=== PATIENT | male | born 1980 | race African-American/Black ===

== ENCOUNTER 2019-06-05 04:25 | Emergency (ER) | payer MEDICAID ==
[~2019-06-05] VITALS: Ht 182.9 cm; Wt 72.0 kg
[2019-06-05] MEDS ORDERED: ALBUTEROL/IPRATROPIUM 2.5MG/0.5MG, 3 ML ONE (04:36)
[2019-06-05] MEDS ORDERED: THIAMINE 200 MG in SODIUM CHLORIDE 0.9% 50 ML IV ONE (05:00)
[2019-06-05] MEDS ORDERED: SODIUM CHLORIDE 0.9% 1,000ML IVBOLUS ONE (05:00)
[2019-06-05] MEDS ORDERED: ONDANSETRON 2MG/ML, 2ML IVPush ONE (05:00)
[2019-06-05] MEDS ORDERED: FOLIC ACID 1 MG in DEXTROSE 5% 50 ML IV SCH (05:00)
[2019-06-05] MEDS ORDERED: SODIUM CHLORIDE FLUSH 10ML SYR IVF ONE (05:00)
[2019-06-05] MEDS ORDERED: FAMOTIDINE 20 MG/2 ML IVP ONE (05:00)
[2019-06-05 05:17] VITALS: BP 121/70
--- NOTE | 2019-06-05 05:17 | NUR ---
Patient/Caregiver given discharge instructions and they have confirmed that they understand the instructions. Patient ambulatory with steady gait.
== END 2019-06-05 05:19 ==
LOC: ED 05:13
DX: J45.41 Moderate persistent asthma with (acute) exacerbation (principal)
CPT/HCPCS: 94640; 99283

== ENCOUNTER 2020-04-29 13:50 | Inpatient (IN) | payer MEDICAID ==
[~2020-04-29] VITALS: Ht 182.9 cm; Wt 76.6 kg
--- NOTE | 2020-04-29 14:17 | NUR ---
PT WAS AT WORK WHEN HE HAD A SUDDEN ONSET OF LIGHTHEADEDNESS AND DIZZINESS WITH A SYNCOPAL EPISODE WHERE HE HIT HIS HEAD AND TWISTED HIS L ANKLE. PT CURRENTLY [employer] 15. DENIES EDWARDS, N/V. PT ADMITS TO "WORKING A LOT AND FEELING EXHAUSTED AND DEHYDRATED". 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 VS STABLE. WILL CONTINUE TO MONITOR PT.
[2020-04-29] MEDS ORDERED: SODIUM CHLORIDE 0.9% 1,000ML IVBOLUS ONE (14:30)
[2020-04-29 14:48] LABS: ALBUMIN 3.4 g/dL (3.4-5.0); ANION GAP 7 mmol/L (5-15); CALCIUM 8.4 mg/dL (8.5-10.1); CHLORIDE 110 mmol/L (98-107); CREATININE 1.56 mg/dL (0.7-1.3)
[2020-04-29 14:51] LABS: TROPONIN I < 0.015 ng/mL (0.000-0.045)
[2020-04-29 15:10] LABS: MEAN CORPUSCULAR HEMOGLOBIN 24.4 pg (27.5-34.5); MEAN CORPUSCULAR HGB CONC 31.5 g/dL (33.2-36.2); MEAN CORPUSCULAR VOLUME 77.6 fL (81-97); MEAN PLATELET VOLUME 7.1 fL (7.4-10.4); PLATELET COUNT 281 x10^3/uL (130-400); RED BLOOD COUNT 5.83 x10^6/uL (4.38-5.82); RED CELL DISTRIBUTION WIDTH 15.7 % (9.4-14.8)
[2020-04-29 15:29] LABS: BASOPHILS # (AUTO) 0.03 x10^3/uL (0-0.1); BASOPHILS % (AUTO) 1 % (0-1); EOSINOPHILS # (AUTO) 0.26 x10^3/uL (0-0.4); EOSINOPHILS % (AUTO) 9 % (1-7); LYMPHOCYTES # (AUTO) 0.83 x10^3/uL (1-3.4); LYMPHOCYTES % (AUTO) 30 % (22-44); MD SCAN; MONOCYTES # (AUTO) 0.22 x10^3/uL (0.2-0.8); MONOCYTES % (AUTO) 8 % (2-9); NEUTROPHILS # (AUTO) 1.46 x10^3/uL (1.8-6.8); NEUTROPHILS % (AUTO) 52 % (42-75)
[2020-04-29] MEDS ORDERED: ONDANSETRON ODT 4 MG PO PRN (18:00)
[2020-04-29] MEDS ORDERED: ACETAMINOPHEN 325 MG TABLET PO PRN (18:00)
[2020-04-29] MEDS ORDERED: SODIUM CHLORIDE FLUSH 10ML SYR IVF PRN (18:00)
[2020-04-29 18:02] LABS: MEAN CORPUSCULAR HEMOGLOBIN 23.8 pg (27.5-34.5); MEAN CORPUSCULAR HGB CONC 30.7 g/dL (33.2-36.2); MEAN CORPUSCULAR VOLUME 77.7 fL (81-97); MEAN PLATELET VOLUME 7.1 fL (7.4-10.4); PLATELET COUNT 321 x10^3/uL (130-400); RED BLOOD COUNT 5.57 x10^6/uL (4.38-5.82); RED CELL DISTRIBUTION WIDTH 15.7 % (9.4-14.8)
[2020-04-29 18:13] VITALS: BP 124/74
[2020-04-29] MEDS: NICOTINE 14MG/24 HR PATCH.TD24 TD SCH (18:18)
[2020-04-29] MEDS: SODIUM CHLORIDE 0.9% 1,000 ML IV SCH (18:19)
[2020-04-29 18:22] LABS: BASOPHILS % (AUTO) 0 % (0-1); EOSINOPHILS # (AUTO) 0.21 x10^3/uL (0-0.4); EOSINOPHILS % (AUTO) 4 % (1-7); LYMPHOCYTES # (AUTO) 0.88 x10^3/uL (1-3.4); LYMPHOCYTES % (AUTO) 16 % (22-44); MD SCAN; MONOCYTES # (AUTO) 0.16 x10^3/uL (0.2-0.8); MONOCYTES % (AUTO) 3 % (2-9); NEUTROPHILS # (AUTO) 4.13 x10^3/uL (1.8-6.8); NEUTROPHILS % (AUTO) 77 % (42-75)
[2020-04-29 19:05] VITALS: BP 123/71
[2020-04-29 20:16] VITALS: BP 115/73
[2020-04-29 20:18] VITALS: BP 116/76
[2020-04-29 20:21] VITALS: BP 125/81
[2020-04-29 21:13] LABS: TROPONIN I < 0.015 ng/mL (0.000-0.045)
[2020-04-30] VITALS (10 sets, daily range): BP systolic 109–125; BP diastolic 57–73
[2020-04-30] MEDS: SODIUM CHLORIDE 0.9% 1,000 ML IV SCH ×3 (01:46→19:57)
[2020-04-30 03:26] LABS: ANION GAP 4 mmol/L (5-15); CALCIUM 8.2 mg/dL (8.5-10.1); CHLORIDE 112 mmol/L (98-107)
[2020-04-30 03:30] LABS: ALANINE AMINOTRANSFERASE 22 U/L (12-78); ALKALINE PHOSPHATASE 55 U/L (45-117); BILIRUBIN,TOTAL 1.1 mg/dL (0.2-1.0); CHOLESTEROL, TOTAL 164 mg/dL (140-239); CREATININE 1.33 mg/dL (0.7-1.3); HDL CHOL % 50 % (26-37); HDL CHOLESTEROL (DIRECT) 82 mg/dL (40-60); LDL CHOLESTEROL,CALCULATED 64 mg/dL (54-169); LDL/HDL RATIO 0.8 (0.5-3.0); TOTAL PROTEIN 6.3 g/dL (6.4-8.2); TRIGLYCERIDES 91 mg/dL (50-200); TROPONIN I < 0.015 ng/mL (0.000-0.045); VLDL CHOLESTEROL 18 mg/dL (0-25)
[2020-04-30 12:25] LABS: AMPHETAMINE SCREEN, URINE Positive (Negative); BARBITURATE SCREEN, URINE Negative (Negative); BENZODIAZEPINE SCREEN, URINE Negative (Negative); CANNABINOID SCREEN, URINE Negative (Negative); COCAINE SCREEN, URINE Negative (Negative); METHADONE SCREEN, URINE Negative (Negative); OPIATE SCREEN, URINE Negative (Negative)
[2020-04-30] MEDS: NICOTINE 14MG/24 HR PATCH.TD24 TD SCH (18:00)
[2020-05-01 01:05] VITALS: BP 101/57
[2020-05-01 02:30] VITALS: BP 119/77
[2020-05-01] MEDS: SODIUM CHLORIDE 0.9% 1,000 ML IV SCH ×5 (02:41→17:47)
[2020-05-01 06:48] VITALS: BP 128/71
[2020-05-01] MEDS ORDERED: MIDAZOLAM 1 MG/ML, 5ML ONE ×2 (09:52→13:40)
[2020-05-01] MEDS ORDERED: FENTANYL PF 100 MCG/2ML ONE ×2 (09:52→13:40)
[2020-05-01 09:53] LABS: INTERNATIONAL NORMALIZED RATIO 1.04 (0.93-1.1)
[2020-05-01] MEDS ORDERED: LIDOCAINE 2%, 20ML ONE ×2 (09:53→15:12)
[2020-05-01] MEDS ORDERED: CEFAZOLIN PMX 1GM/50ML 0 ML ONE (09:53)
[2020-05-01] MEDS ORDERED: CEFAZOLIN 1,000 MG ONE ×2 (09:53→13:40)
[2020-05-01 13:00] VITALS: BP 144/88
[2020-05-01] MEDS ORDERED: CEFAZOLIN PMX 1GM/50ML 100 ML ONE (13:40)
[2020-05-01] MEDS ORDERED: LIDOCAINE 1%, 20ML ONE (13:40)
[2020-05-01] MEDS ORDERED: Hold all anticoagulants for 24 hours (including Lovenox and Heparin) MC PRN (16:30)
[2020-05-01] MEDS ORDERED: HYDROcodone/APAP 5/325 TABLET PO PRN (16:30)
[2020-05-01] MEDS: NICOTINE 14MG/24 HR PATCH.TD24 TD SCH (17:47)
[2020-05-01 20:46] VITALS: BP 153/96
[2020-05-01] MEDS: SODIUM CHLORIDE FLUSH 10ML SYR IVF SCH (21:20)
[2020-05-02 01:44] VITALS: BP 128/66
[2020-05-02] MEDS: SODIUM CHLORIDE 0.9% 1,000 ML IV SCH ×2 (04:03→08:31)
[2020-05-02 05:41] LABS: BASOPHILS # (AUTO) 0.02 x10^3/uL (0-0.1); BASOPHILS % (AUTO) 0 % (0-1); EOSINOPHILS % (AUTO) 4 % (1-7); LYMPHOCYTES # (AUTO) 1.92 x10^3/uL (1-3.4); LYMPHOCYTES % (AUTO) 27 % (22-44); MD NO; MEAN CORPUSCULAR VOLUME 77.4 fL (81-97); MEAN PLATELET VOLUME 7.5 fL (7.4-10.4); MONOCYTES # (AUTO) 0.48 x10^3/uL (0.2-0.8); MONOCYTES % (AUTO) 7 % (2-9); NEUTROPHILS # (AUTO) 4.35 x10^3/uL (1.8-6.8); NEUTROPHILS % (AUTO) 62 % (42-75); PLATELET COUNT 287 x10^3/uL (130-400); RED BLOOD COUNT 5.91 x10^6/uL (4.38-5.82); RED CELL DISTRIBUTION WIDTH 15.2 % (9.4-14.8)
[2020-05-02 05:57] LABS: ANION GAP 8 mmol/L (5-15); CALCIUM 8.3 mg/dL (8.5-10.1); CHLORIDE 107 mmol/L (98-107); CREATININE 1.35 mg/dL (0.7-1.3)
[2020-05-02 06:51] VITALS: BP 130/82
[2020-05-02] MEDS: SODIUM CHLORIDE FLUSH 10ML SYR IVF SCH (08:15)
== END 2020-05-02 11:08 | disposition home or self-care (01) | DRG 242 ==
LOC: ED 14:47 → OBSVTOIN 17:31 → INTOOBSV 17:31 → EDIP 17:31 → 4WST 18:18 → 5SO 05-01 02:43 → DCLOUNGE 05-02 10:50
PROVIDERS: ADMIT Hospitalist; ATTEND Hospitalist
PROC: 0JH606Z Insertion of Pacemaker, Dual Chamber into Chest Subcutaneous Tissue and Fascia, Open Approach (ICD-10-PCS; principal; 2020-05-01)
PROC: 02HK3JZ Insertion of Pacemaker Lead into Right Ventricle, Percutaneous Approach (ICD-10-PCS; 2020-05-01)
PROC: 02H63JZ Insertion of Pacemaker Lead into Right Atrium, Percutaneous Approach (ICD-10-PCS; 2020-05-01)
DX: I49.5 Sick sinus syndrome (principal); N17.0 Acute kidney failure with tubular necrosis; D72.819 Decreased white blood cell count, unspecified; D75.89 Other specified diseases of blood and blood-forming organs; F10.129 Alcohol abuse with intoxication, unspecified; F17.210 Nicotine dependence, cigarettes, uncomplicated; I27.20 Pulmonary hypertension, unspecified; J45.909 Unspecified asthma, uncomplicated; S82.832A Other fracture of upper and lower end of left fibula, initial encounter for closed fracture; R73.9 Hyperglycemia, unspecified; W18.39XA Other fall on same level, initial encounter; Z82.49 Family history of ischemic heart disease and other diseases of the circulatory system; Y93.89 Activity, other specified; Y92.89 Other specified places as the place of occurrence of the external cause; Y99.8 Other external cause status
CPT/HCPCS: 33208; 36415; 73610; 96360; 99285; J3490; 71045; 80048; 80053; 80061; 80307; 82040; 82164; 82962; 83036; 83735; 84100; 84443; 84484; 85025; 85610; 93005; 93306; 99156; 99157; C1779; C1785; C1892; C1894; G0378; J0690; J2250; J3010; J7030